=== PATIENT | male | born 1995 | race Caucasian/White ===

== ENCOUNTER 2018-07-01 05:05 | Emergency (ER) | payer OTHER ==
[~2018-07-01] VITALS: Ht 172.7 cm; Wt 102.1 kg
--- NOTE | ~2018-07-01 | EKG ---
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
[2018-07-01] MEDS ORDERED: CLONAZEPAM 1 MG1 M1 (05:24)
[2018-07-01] MEDS ORDERED: LISINOPRIL20 MG PO (05:24)
[2018-07-01 05:46] LABS: ABSOLUTE BASOPHILS 0.1 thou/uL (0.0-0.2); ABSOLUTE EOSINOPHILS 0.3 thou/uL (0.0-0.7); ABSOLUTE MONOCYTES 1.1 thou/uL (0.0-1.2); ABSOLUTE NEUTROPHILS 8.5 thou/uL (1.6-8.1); BASOPHILS 0.7 %; EOSINOPHILS 2.2 %; HEMATOCRIT 40.1 % (42.0-52.0); HEMOGLOBIN 13.7 gm/dL (14.0-18.0); LYMPHOCYTES 33.3 %; MCH 29.5 pg (26.0-34.0); MCHC 34.1 g/dL (28.0-37.0); MCV 86.4 fL (80.0-100.0); MONOCYTES 7.3 %; MPV 8.6 fl. (7.2-11.1); NUCLEATED RBCS 0 /100WBC; PLATELET COUNT* 316 thou/uL (150-400); POLYS 56.5 %; RBC 4.65 mil/uL (4.50-6.00); RDW-CV 15.8 % (10.5-14.5); WBC 15.1 thou/uL (4.0-11.0)
[2018-07-01 05:59] LABS: ALBUMIN 3.9 g/dL (3.4-5.0); ALKALINE PHOSPHATASE 88 U/L (46-116); ANION GAP 15 mmol/L (7-16); BUN 7 mg/dL (7-18); CALCIUM 8.7 mg/dL (8.5-10.1); CHLORIDE 92 mmol/L (98-107); CO2 23 mmol/L (21-32); CREATININE 0.9 mg/dL (0.6-1.3); GLUCOSE 202 mg/dL (70-99); POTASSIUM 3.7 mmol/L (3.5-5.1); SGOT 83 U/L (15-37); SGPT 102 U/L (30-65); SODIUM 130 mmol/L (136-145); TOTAL BILIRUBIN 0.9 mg/dL (<0.1-1.0); TOTAL PROTEIN 8.8 g/dL (6.4-8.2); TROPONIN-I LEVEL <0.06 ng/mL (<0.06)
[2018-07-01 06:05] LABS: BE -1.4 mmol/L (-2 to +3); PCO2 VENOUS 36.1 mmHg (41.0-51.0)
[2018-07-01 06:51] LABS: PROTIME 10.2 Seconds (9.20-11.50)
[2018-07-01 08:02] LABS: TROPONIN-I LEVEL <0.06 ng/mL (<0.06)
[2018-07-01 08:14] LABS: LIPASE 4392 U/L (73-393)
[2018-07-01 08:15] LABS: AMP/METHAMP Negative (Negative); BARBITURATES Negative (Negative); BENZODIAZEPINES POSITIVE (Negative); COCAINE POSITIVE (Negative); METHADONE Negative (Negative); OPIATES Negative (Negative); PCP Negative (Negative); THC POSITIVE (Negative)
[2018-07-01 08:23] VITALS: BP 143/111
[2018-07-01] MEDS ORDERED: CLONIDINE0.1 PO (16:06)
== END 2018-07-01 08:24 | disposition left against medical advice (07) ==
LOC: M.ERS 05:05
PROVIDERS: Emergency Medicine
DX: F10.129 Alcohol abuse with intoxication, unspecified (principal); K85.90 Acute pancreatitis without necrosis or infection, unspecified

== ENCOUNTER 2018-07-01 12:11 | Inpatient (IN) | payer OTHER ==
[~2018-07-01] VITALS: Ht 172.7 cm; Wt 108.9 kg
[~2018-07-01 12:11] MED LIST: CLONAZEPAM 1 MG1 M1; LISINOPRIL20 MG PO
[2018-07-01 12:19] VITALS: BP 160/102
[2018-07-01 12:48] LABS: ABSOLUTE BASOPHILS 0.1 thou/uL (0.0-0.2); ABSOLUTE EOSINOPHILS 0.2 thou/uL (0.0-0.7); ABSOLUTE LYMPHOCYTES 2.1 thou/uL (0.8-5.3); ABSOLUTE NEUTROPHILS 7.3 thou/uL (1.6-8.1); BASOPHILS 1.4 %; EOSINOPHILS 1.4 %; HEMATOCRIT 37.1 % (42.0-52.0); HEMOGLOBIN 12.8 gm/dL (14.0-18.0); LYMPHOCYTES 20.1 %; MCHC 34.6 g/dL (28.0-37.0); MCV 86.7 fL (80.0-100.0); MONOCYTES 9.1 %; MPV 7.8 fl. (7.2-11.1); NUCLEATED RBCS 0 /100WBC; PLATELET COUNT* 250 thou/uL (150-400); RBC 4.27 mil/uL (4.50-6.00); RDW-CV 15.7 % (10.5-14.5); WBC 10.7 thou/uL (4.0-11.0)
[2018-07-01 13:06] LABS: ALBUMIN 3.6 g/dL (3.4-5.0); CALCIUM 8.4 mg/dL (8.5-10.1); CREATININE 0.8 mg/dL (0.6-1.3); POTASSIUM 3.8 mmol/L (3.5-5.1); TOTAL BILIRUBIN 1.2 mg/dL (<0.1-1.0)
[2018-07-01 15:55] VITALS: BP 152/92
[2018-07-01 16:03] VITALS: BP 138/85
[2018-07-01] MEDS ORDERED: CLONIDINE0.1 PO (16:06)
[2018-07-01 19:50] VITALS: BP 156/92
[2018-07-01 20:14] LABS: URINE BILIRUBIN NEGATIVE (Negative); URINE BLOOD NEGATIVE (Negative); URINE CLARITY CLEAR; URINE COLOR YELLOW; URINE GLUCOSE-RANDOM TRACE (Negative); URINE KETONES NEGATIVE (Negative); URINE LEUKOCYTES-REFLEX NEGATIVE (Negative); URINE NITRITE-REFLEX NEGATIVE (Negative); URINE PROTEIN TRACE (Negative); URINE UROBILINOGEN 0.2 E.U./dl (0.2-1.0)
[2018-07-01 20:21] LABS: AMP/METHAMP Negative (Negative); BARBITURATES Negative (Negative); BENZODIAZEPINES POSITIVE (Negative); COCAINE POSITIVE (Negative); METHADONE Negative (Negative); OPIATES Negative (Negative); PCP Negative (Negative); THC POSITIVE (Negative)
[2018-07-02] VITALS: BP 159/100
[2018-07-02 04:00] VITALS: BP 148/98
[2018-07-02 08:00] VITALS: BP 139/92
[2018-07-02 11:26] VITALS: BP 160/104
[2018-07-02 15:25] VITALS: BP 149/90
[2018-07-02 20:00] VITALS: BP 144/105
[2018-07-03] VITALS: BP 142/79
[2018-07-03 03:30] VITALS: BP 131/80
[2018-07-03 05:30] LABS: CALCIUM 8.3 mg/dL (8.5-10.1); CREATININE 0.8 mg/dL (0.6-1.3)
[2018-07-03 07:45] VITALS: BP 147/97
[2018-07-03 12:00] VITALS: BP 171/104
[2018-07-03] MEDS ORDERED: WELLBUTRIN XL150 MG PO (15:24)
[2018-07-03] MEDS ORDERED: NORVASC5 MG PO (15:24)
[2018-07-03 15:39] VITALS: BP 162/107
[2018-07-03 16:09] VITALS: BP 162/107
== END 2018-07-03 17:50 | disposition home or self-care (01) | DRG 439 ==
LOC: M.ERS 12:11 → M.2W 12:43 → M.TBA-ER 12:43 → M.2W 16:01
PROVIDERS: Nurse Practitioner Family; ADMIT Internal Medicine
DX: K85.20 Alcohol induced acute pancreatitis without necrosis or infection (principal); E87.1 Hypo-osmolality and hyponatremia; E87.2 Acidosis; I10 Essential (primary) hypertension; F12.90 Cannabis use, unspecified, uncomplicated; F17.210 Nicotine dependence, cigarettes, uncomplicated; K58.1 Irritable bowel syndrome with constipation; F90.9 Attention-deficit hyperactivity disorder, unspecified type; R00.0 Tachycardia, unspecified; Z79.899 Other long term (current) drug therapy

== ENCOUNTER 2018-10-18 20:22 | Inpatient (IN) | payer OTHER ==
[~2018-10-18] VITALS: Ht 170.2 cm; Wt 110.2 kg
[~2018-10-18 20:22] MED LIST changes: +CLONIDINE0.1 PO; +NORVASC5 MG PO; +WELLBUTRIN XL150 MG PO
[2018-10-18 20:30] VITALS: BP 151/103
[2018-10-18 21:00] LABS: ABSOLUTE EOSINOPHILS 0.4 thou/uL (0.0-0.7); ABSOLUTE LYMPHOCYTES 5.8 thou/uL (0.8-5.3); ABSOLUTE MONOCYTES 1.6 thou/uL (0.0-1.2); BASOPHILS 0.3 %; EOSINOPHILS 2.7 %; HEMATOCRIT 46.7 % (42.0-52.0); HEMOGLOBIN 15.6 gm/dL (14.0-18.0); LYMPHOCYTES 38.9 %; MCH 30.3 pg (26.0-34.0); MCHC 33.5 g/dL (28.0-37.0); MCV 90.4 fL (80.0-100.0); MPV 7.5 fl. (7.2-11.1); NUCLEATED RBCS 0 /100WBC; PLATELET COUNT* 395 thou/uL (150-400); POLYS 47.1 %; RBC 5.17 mil/uL (4.50-6.00); RDW-CV 14.9 % (10.5-14.5); WBC 14.9 thou/uL (4.0-11.0)
[2018-10-18 21:07] LABS: CREATININE 1.1 mg/dL (0.6-1.3); POTASSIUM 3.1 mmol/L (3.5-5.1)
[2018-10-18 21:09] LABS: CALCIUM 12.2 mg/dL (8.5-10.1)
[2018-10-18 21:11] LABS: ALBUMIN 4.2 g/dL (3.4-5.0); TOTAL PROTEIN 8.9 g/dL (6.4-8.2)
[2018-10-18 22:05] LABS: URINE BILIRUBIN NEGATIVE (Negative); URINE BLOOD TRACE (Negative); URINE CLARITY CLEAR; URINE COLOR YELLOW; URINE GLUCOSE-RANDOM NEGATIVE (Negative); URINE KETONES NEGATIVE (Negative); URINE LEUKOCYTES-REFLEX NEGATIVE (Negative); URINE NITRITE-REFLEX NEGATIVE (Negative); URINE PROTEIN TRACE (Negative); URINE UROBILINOGEN 0.2 E.U./dl (0.2-1.0)
[2018-10-18 23:10] VITALS: BP 134/81
[2018-10-18 23:55] VITALS: BP 147/86
[2018-10-19 01:35] LABS: AMP/METHAMP POSITIVE (Negative); BARBITURATES Negative (Negative); BENZODIAZEPINES Negative (Negative); COCAINE POSITIVE (Negative); METHADONE Negative (Negative); OPIATES Negative (Negative); PCP Negative (Negative); THC Negative (Negative)
[2018-10-19 04:18] VITALS: BP 143/81
[2018-10-19 05:20] LABS: AMMONIA 23 umol/L (11-32); ANION GAP 14 mmol/L (7-16); BUN 6 mg/dL (7-18); CHLORIDE 103 mmol/L (98-107); CHOLESTEROL 336 mg/dL (<200); CO2 23 mmol/L (21-32); GLUCOSE 134 mg/dL (70-99); HDL CHOLESTEROL 34 mg/dL (>40); LDL CHOLESTEROL 223 mg/dL (<100); MAGNESIUM 1.5 mg/dL (1.8-2.4); PHOSPHORUS* 3.1 mg/dL (2.5-4.9); PROTIME 10.4 Seconds (9.20-11.50); SODIUM 140 mmol/L (136-145); TC:HDL 9.9 Ratio (Not establshd); TRIGLYCERIDE 396 mg/dL (<150); VLDL 79 mg/dL (<40)
[2018-10-19 05:25] LABS: CALCIUM 10.1 mg/dL (8.5-10.1); POTASSIUM 4.3 mmol/L (3.5-5.1)
[2018-10-19 06:25] LABS: SERUM ASSESSMENT Moderate Lipemia
[2018-10-19 07:30] VITALS: BP 151/97
[2018-10-19 12:00] VITALS: BP 154/93
[2018-10-19 16:00] VITALS: BP 175/108
[2018-10-19 20:00] VITALS: BP 148/101
[2018-10-20] VITALS: BP 148/106
[2018-10-20 04:00] VITALS: BP 155/103
[2018-10-20 05:08] LABS: ABSOLUTE BASOPHILS 0.1 thou/uL (0.0-0.2); ABSOLUTE EOSINOPHILS 0.7 thou/uL (0.0-0.7); ABSOLUTE LYMPHOCYTES 2.1 thou/uL (0.8-5.3); ABSOLUTE MONOCYTES 0.9 thou/uL (0.0-1.2); ABSOLUTE NEUTROPHILS 6.5 thou/uL (1.6-8.1); BASOPHILS 0.9 %; EOSINOPHILS 7.1 %; HEMATOCRIT 37.5 % (42.0-52.0); LYMPHOCYTES 20.2 %; MCH 31.2 pg (26.0-34.0); MCV 91.7 fL (80.0-100.0); MONOCYTES 8.6 %; MPV 8.2 fl. (7.2-11.1); NUCLEATED RBCS 0 /100WBC; POLYS 63.2 %; RDW-CV 14.9 % (10.5-14.5); WBC 10.3 thou/uL (4.0-11.0)
[2018-10-20 05:19] LABS: CALCIUM 8.9 mg/dL (8.5-10.1); CREATININE 0.9 mg/dL (0.6-1.3); MAGNESIUM 1.8 mg/dL (1.8-2.4); PHOSPHORUS* 2.7 mg/dL (2.5-4.9); POTASSIUM 3.8 mmol/L (3.5-5.1)
[2018-10-20 05:30] LABS: HEMOGLOBIN 12.8 gm/dL (14.0-18.0); PLATELET COUNT* 228 thou/uL (150-400)
[2018-10-20 08:00] VITALS: BP 138/98
[2018-10-20 12:00] VITALS: BP 170/106
[2018-10-20 15:05] LABS: HEPATITIS B SURFACE AG Negative (Negative)
[2018-10-20 16:00] VITALS: BP 146/102
[2018-10-20 20:00] VITALS: BP 137/89
[2018-10-21] VITALS: BP 155/107
[2018-10-21 04:00] VITALS: BP 155/111
[2018-10-21 08:00] VITALS: BP 137/89
[2018-10-21 12:17] VITALS: BP 136/91
[2018-10-21 14:19] VITALS: BP 136/91
== END 2018-10-21 15:12 | disposition home or self-care (01) | DRG 440 ==
LOC: M.ERS 20:22 → M.TBA-ER 21:36 → M.2W 21:36
PROVIDERS: Family Medicine; ADMIT Family Medicine
DX: K86.0 Alcohol-induced chronic pancreatitis (principal); F10.229 Alcohol dependence with intoxication, unspecified; F14.10 Cocaine abuse, uncomplicated; Y90.9 Presence of alcohol in blood, level not specified; I10 Essential (primary) hypertension; F17.210 Nicotine dependence, cigarettes, uncomplicated; F19.10 Other psychoactive substance abuse, uncomplicated; F15.10 Other stimulant abuse, uncomplicated

== ENCOUNTER 2018-11-25 23:53 | Emergency (ER) | payer OTHER ==
[~2018-11-25] VITALS: Ht 172.7 cm; Wt 99.8 kg
[2018-11-26 00:19] LABS: ABSOLUTE BASOPHILS 0.2 thou/uL (0.0-0.2); ABSOLUTE EOSINOPHILS 0.4 thou/uL (0.0-0.7); ABSOLUTE MONOCYTES 0.7 thou/uL (0.0-1.2); ABSOLUTE NEUTROPHILS 4.7 thou/uL (1.6-8.1); BASOPHILS 1.4 %; HEMATOCRIT 43.8 % (42.0-52.0); HEMOGLOBIN 15.4 gm/dL (14.0-18.0); MCH 31.3 pg (26.0-34.0); MCHC 35.2 g/dL (28.0-37.0); MCV 89.1 fL (80.0-100.0); MPV 7.5 fl. (7.2-11.1); NUCLEATED RBCS 0 /100WBC; PLATELET COUNT* 373 thou/uL (150-400); POLYS 42.6 %; RBC 4.92 mil/uL (4.50-6.00); RDW-CV 13.7 % (10.5-14.5)
[2018-11-26 00:22] LABS: CALCIUM 10.5 mg/dL (8.5-10.1); CREATININE 0.9 mg/dL (0.6-1.3); POTASSIUM 3.6 mmol/L (3.5-5.1)
[2018-11-26 00:26] LABS: ALBUMIN 3.8 g/dL (3.4-5.0); TOTAL BILIRUBIN 0.5 mg/dL (<0.1-1.0); TOTAL PROTEIN 8.5 g/dL (6.4-8.2)
[2018-11-26] MEDS ORDERED: ATIVAN1 MG PO (01:19)
[2018-11-26] MEDS ORDERED: PROTONIX40 MG PO (01:19)
[2018-11-26 01:40] VITALS: BP 114/78
== END 2018-11-26 01:41 | disposition home or self-care (01) ==
LOC: M.ERS 23:53
PROVIDERS: Emergency Medicine
DX: F10.10 Alcohol abuse, uncomplicated (principal); K29.70 Gastritis, unspecified, without bleeding; I10 Essential (primary) hypertension; Z79.899 Other long term (current) drug therapy

== ENCOUNTER 2019-02-14 23:36 | Emergency (ER) | payer OTHER ==
[~2019-02-14] VITALS: Ht 172.7 cm; Wt 95.3 kg
[~2019-02-14 23:36] MED LIST changes: +ATIVAN1 MG PO; +PROTONIX40 MG PO
[2019-02-14] MEDS ORDERED: VISTARIL 25 MG25 M1 PO (23:50)
[2019-02-14] MEDS ORDERED: NEURONTIN300 MG PO (23:51)
[2019-02-14] MEDS ORDERED: ZANAFLEX2 M1 PO (23:51)
[2019-02-15 00:06] LABS: ABSOLUTE BASOPHILS 0.1 thou/uL (0.0-0.2); ABSOLUTE EOSINOPHILS 0.2 thou/uL (0.0-0.7); ABSOLUTE MONOCYTES 0.5 thou/uL (0.0-1.2); ABSOLUTE NEUTROPHILS 3.6 thou/uL (1.6-8.1); BASOPHILS 0.9 %; EOSINOPHILS 2.2 %; HEMATOCRIT 41.4 % (42.0-52.0); LYMPHOCYTES 53.3 %; MCH 29.1 pg (26.0-34.0); MCHC 33.9 g/dL (28.0-37.0); MCV 85.9 fL (80.0-100.0); MONOCYTES 5.7 %; MPV 7.4 fl. (7.2-11.1); NUCLEATED RBCS 0 /100WBC; PLATELET COUNT* 357 thou/uL (150-400); POLYS 37.9 %; RBC 4.82 mil/uL (4.50-6.00); WBC 9.4 thou/uL (4.0-11.0)
[2019-02-15 00:13] LABS: CALCIUM 9.4 mg/dL (8.5-10.1); POTASSIUM 3.4 mmol/L (3.5-5.1)
[2019-02-15 00:18] LABS: ALBUMIN 4.2 g/dL (3.4-5.0); MAGNESIUM 1.8 mg/dL (1.8-2.4); TOTAL BILIRUBIN 0.6 mg/dL (<0.1-1.0); TOTAL PROTEIN 8.4 g/dL (6.4-8.2)
[2019-02-15] MEDS ORDERED: ATIVAN1 M1 PO (05:36)
[2019-02-15 05:43] VITALS: BP 133/85
--- NOTE | 2019-02-15 13:22 | EKG ---
[place] [address] ELECTROCARDIOGRAM REPORT Name: STEFANI NG Room: [facility]#: [id number] Admission: 02/14/19 Attend Phys: Discharge: 02/15/19 Date of : [birth year] Report #: [id number] THIS REPORT FOR: //name// [facility] ED Test Date: 2019-02-14 Test Time: 23:46:47 Pat Name: STEFANI NG Department: Room: Gender: M [employer] Tester: : 1995 Requested By: Heidy Jones Order Number: [id number] MD: Robert Fisher Measurements Intervals [place] Rate: 124 P: 50 [place]: 152 QRS: 73 QRSD: 95 T: -24 QT: 339 QTc: 487 Interpretive Statements Sinus tachycardia Inferior infarct, age indeterminate Baseline wander in lead(s) V2 Compared to ECG 07/01/2018 05:15:17 Myocardial infarct finding now present Electronically Signed On 02-15-2019 13:22:01 CDT by Robert Fisher [email or web address] <ELECTRONICALLY SIGNED> By: Robert Fisher MD, FACC 02/15/19 [id number] Robert Fisher MD, [facility] /EPI
== END 2019-02-15 05:44 | disposition home or self-care (01) ==
LOC: M.ERS 23:36
PROVIDERS: Emergency Medicine
DX: F10.129 Alcohol abuse with intoxication, unspecified (principal); Y90.8 Blood alcohol level of 240 mg/100 ml or more; I10 Essential (primary) hypertension; K74.69 Other cirrhosis of liver

== ENCOUNTER 2019-04-05 13:26 | Emergency (ER) | payer OTHER ==
[~2019-04-05] VITALS: Ht 172.7 cm; Wt 99.8 kg
[~2019-04-05 13:26] MED LIST changes: +ATIVAN1 M1 PO; +NEURONTIN300 MG PO; +VISTARIL 25 MG25 M1 PO; +ZANAFLEX2 M1 PO
[2019-04-05 13:28] VITALS: BP 129/88
[2019-04-05 13:47] LABS: HEMOGLOBIN 14.9 gm/dL (14.0-18.0); MCH 27.7 pg (26.0-34.0); MCHC 33.8 g/dL (28.0-37.0); MCV 81.8 fL (80.0-100.0); MPV 7.3 fl. (7.2-11.1); NUCLEATED RBCS 0 /100WBC; PLATELET COUNT* 324 thou/uL (150-400); RBC 5.38 mil/uL (4.50-6.00); RDW-CV 15.4 % (10.5-14.5); WBC 6.2 thou/uL (4.0-11.0)
[2019-04-05 14:00] LABS: CALCIUM 8.8 mg/dL (8.5-10.1); POTASSIUM 3.8 mmol/L (3.5-5.1)
[2019-04-05 14:04] LABS: ALBUMIN 3.9 g/dL (3.4-5.0); TOTAL BILIRUBIN 0.4 mg/dL (<0.1-1.0); TOTAL PROTEIN 8.1 g/dL (6.4-8.2)
[2019-04-05 14:08] LABS: ACETAMINOPHEN < 2 ug/mL (10-30); ALCOHOL 374 mg/dL (<10); SALICYLATE < 2.8 mg/dL (2.8-20.0)
[2019-04-05 14:11] LABS: ABSOLUTE EOSINOPHILS 0.3 thou/uL (0.0-0.7); ABSOLUTE LYMPHOCYTES 4.1 thou/uL (0.8-5.3); ABSOLUTE MONOCYTES 0.5 thou/uL (0.0-1.2); ABSOLUTE NEUTROPHILS 1.3 thou/uL (1.6-8.1); ATYPICAL LYMPHS 20 %; PLATELET ESTIMATE ADEQUATE
== END 2019-04-05 13:46 | disposition home or self-care (01) ==
LOC: M.ERS 13:26
PROVIDERS: Family Medicine
DX: F10.129 Alcohol abuse with intoxication, unspecified (principal); I10 Essential (primary) hypertension; K74.60 Unspecified cirrhosis of liver; Y90.8 Blood alcohol level of 240 mg/100 ml or more

== ENCOUNTER 2019-06-19 16:58 | Emergency (ER) | payer OTHER ==
[~2019-06-19] VITALS: Ht 172.7 cm; Wt 99.8 kg
[2019-06-19 17:31] VITALS: BP 145/90
== END 2019-06-19 17:32 | disposition home or self-care (01) ==
LOC: M.ERS 16:58
DX: Z53.21 Procedure and treatment not carried out due to patient leaving prior to being seen by health care provider (principal)